=== PATIENT | female | born 1990 | race Caucasian/White ===

== ENCOUNTER 2016-09-17 11:01 | Emergency (ER) | payer OTHER ==
[~2016-09-17 11:01] MED LIST: IBUP-1114 PO; MACR100C3 PO
[2016-09-17 11:53] LABS: CONTROL LINE UCG INT CTR LINE PRESENT
--- NOTE | 2016-09-17 12:22 | EDDOCDS ---
Nurse's Notes [facility] Name: Cricket Cat Age: 26 yrs Sex: Female : 1990 Arrival Date: 09/17/2016 Time: 11:01 Bed TR8 Private MD: NO PRIMARY PHYSICIAN, . Diagnosis: Cystitis Presentation: 09/17 11:09 Presenting complaint: Patient states: urinary frequency x1 month. Denies painful po urination. Adult Sepsis Screening: The patient does not have new or worsening altered mentation. Patient's respiratory rate is less than 22. Systolic blood pressure is greater than 100. Patient has a qSOFA score of 0- Negative Sepsis Screen. Suicide/Homicide risk assessment- the patient denies having any suicidal and/or homicidal ideations and does not present with any other emotional, behavioral or mental health complaints. Status: Patient is not a administrative services assistant or dependent. Transition of care: patient was not received from another setting of care. 11:09 Acuity: BINU Level 4 po 11:09 Method Of Arrival: Walkin/Carried/Asstd po Triage Assessment: 11:11 General: Appears in no apparent distress, Behavior is appropriate for age, cooperative. po Pain: Denies pain. HIV screening NA for this visit Offered previously. Neurological: Level of Consciousness is awake, alert, Oriented to person, place, time. Respiratory: Airway is patent Respiratory effort is even, unlabored. : Reports urinary frequency since 1 month. Derm: Skin is pink, warm & dry. 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 Iron CR Oral 250 mg daily 2. albuterol sulfate 90 mcg/actuation Inhl aepb 2 puffs every 4 hours 3. Depo-Provera Unknown IM every 3 mo - PMHx: Anemia; Asthma; - PSHx: Cesearean Section; - Social history: Smoking status: Patient states former smoker of tobacco. No barriers to communication noted, The patient speaks fluent Thai. - Family history: Not pertinent. - : The pt / caregiver states he / she is not on anticoagulants. Home medication list is obtained from the patient. - Exposure Risk Screening:: None identified. Screenin:19 Screening information is obtained from the patient. Fall risk: No risks identified. ms18 Assistance ADL's: requires no assistance with activities of daily living. Abuse/DV Screen: The patient / caregiver reports he/she is: not in a situation that causes fear, pain or injury. Nutritional screening: No deficits noted. Advance Directives: There is no living will. home support is adequate. Assessment: 12:19 General: Appears in no apparent distress, comfortable, Behavior is appropriate for age, ms18 cooperative. Pain: Location: pelvis. Neurological: Level of Consciousness is awake, alert, obeys commands, Oriented to person, place, time. Respiratory: No deficits noted. : Reports burning with urination. Derm: Skin is pink, warm & dry. Vital Signs: 11:03 BP 123 / 87; Pulse 120; Resp 18; Temp 97.7(O); Pulse Ox 98% on R/A; Weight 54.43 kg sar1 (R); Height 5 ft. 3 in. (160.02 cm) (R); Pain 0/10; 12:19 BP 120 / 84; Pulse 97; Resp 18; Pulse Ox 98% ; ms18 11:03 Body Mass Index 21.26 (54.43 kg, 160.02 cm) [facility] Vitals: 11:03 Log In Time: September 17, 2016 at 11:03. [facility] ED Course: 11:02 Patient visited by Bernadine Malone, [employer] Account Assistant. sar1 11:02 Patient moved to Waiting sar1 11:03 NO PRIMARY PHYSICIAN, . is Private Physician. sar1 11:06 Patient moved to Pre RCE sar1 11:10 Triage Initiated po 11:11 Arm band placed on right wrist. Patient placed in waiting room. po 11:38 Patient moved to Triage 3 rn1 11:46 Patient visited by Jaquelin Monroe RN. ms18 11:46 GC & Chlamydia Amplification Sent. ms18 11:46 UCG- In Lab Sent. ms18 11:46 Urine Culture Sent. ms18 11:46 UA Sent. ms18 11:49 [facility] cc10 11:49 Felicia Owusu MD is Attending Physician. cc10 11:49 Patient visited by Jose Evans PA-C. cc10 11:49 Patient visited by Jose Evans PA-C. cc10 12:11 Yonny Gabriel MD is Referral Physician. cc10 12:19 Patient visited by Jaquelin Monroe RN. ms18 12:19 Patient moved to 8 ms18 12:19 The patient / caregiver is instructed regarding the plan of care and ED course. ms18 Accompanied by Significant Other, Patient has correct armband on for positive identification. Property sent home with patient. :Personal belongings accompany Pt. 12:19 No IV's were initiated during this patient's visit. No procedures done that require ms18 assistance. Order Results: Lab Order: UA; SPEC'M 09/17/16 11:44 Test: APPEARANCE, URINE; Value: CLEAR; Range: CLEAR; Status: F Test: COLOR, URINE; Value: YELLOW; Range: YELLOW; Status: F Test: PH,URINE; Value: 6.0; Range: 5.0-9.0; Units: UNITS; Status: F Test: SPECIFIC GRAVITY URINE AUTO; Value: 1.017; Range: 1.002-1.035; Status: F Test: PROTEIN, URINE AUTO; Value: NEGATIVE; Range: NEGATIVE; Units: mg/dL; Status: F Test: GLUCOSE, URINE (UA) AUTO; Value: NEGATIVE; Range: NEGATIVE; Units: mg/dL; Status: F Test: KETONE, URINE AUTO; Value: NEGATIVE; Range: NEGATIVE; Units: mg/dL; Status: F Test: UROBILINOGEN, URINE AUTO; Value: 0.2; Range: 0.0-2.0; Units: mg/dL; Status: F Test: BILIRUBIN, URINE AUTO; Value: NEGATIVE; Range: NEGATIVE; Status: F Test: NITRITE, URINE AUTO; Value: NEGATIVE; Range: NEGATIVE; Status: F Test: LEUKOCYTE ESTERASE, URINE AUTO; Value: TRACE; Range: NEGATIVE; Abnormal: Above high normal; Status: F Test: BLOOD, URINE BLOOD; Value: 1+; Range: NEGATIVE; Abnormal: Above high normal; Status: F Test: SPERM, URINE AUTO; Range: NONE; Status: I Test: WBC, URINE AUTO; Value: 5; Range: 0-3; Abnormal: Above high normal; Units: /HPF; Status: F Test: RBC, URINE AUTO; Value: 2; Range: 0-3; Units: /HPF; Status: F Test: BACTERIA, URINE AUTO; Value: NEGATIVE; Range: NEGATIVE; Status: F Test: SQUAMOUS EPITHELIAL CELL UR AU; Value: 2; Range: 0-6; Units: /HPF; Status: F Test: MUCUS, URINE; Value: SMALL; Range: NEGATIVE; Status: F Test: HYALINE CAST, URINE AUTO; Value: 0; Range: 0-1; Units: /LPF; Status: F Lab Order: UCG- In Lab; OLI'M 09/17/16 11:44 Test: URINE PREG TEST; Value: NEGATIVE; Range: NEGATIVE; Status: F Outcome: 12:11 Discharge ordered by Provider. cc10 12:19 Discharge Assessment: Patient awake, alert and oriented x 3. No cognitive and/or ms18 functional deficits noted. Patient verbalized understanding of disposition instructions. patient administered narcotics - no. The following High Risk Discharge criteria are identified: None. Discharged to home ambulatory, with significant other. Condition: good Condition: stable Condition: improved. Discharge instructions given to patient, Instructed on discharge instructions, follow up and referral plans. medication usage, Demonstrated understanding of instructions, medications, Pt was receptive of discharge instructions/ teaching. Prescriptions given X 2. No special radiology studies were completed. 12:21 Patient left the ED. ms18 Signatures: Ezra Chambers,RN RN Jose Sterling, PA-C PA-C cc10 Jaquelin Monroe RN RN ms18 Bernadine Malone, [employer] Account Assistant Unit sar1 Martin Nobles rn1 MTDD
--- NOTE | 2016-09-17 12:22 | EDDOCDS ---
Physician Documentation [facility] Name: Cricket Cat Age: 26 yrs Sex: Female : 1990 Arrival Date: 09/17/2016 Time: 11:01 Bed TR8 Private MD: NO PRIMARY PHYSICIAN, . Disposition: 09/17/16 12:11 Discharged to Home/Self Care. Impression: Cystitis. - Condition is Stable. - Discharge Instructions: Urinary Tract Infection. - Prescriptions for Pyridium 200 mg Oral Tablet - take 1 tablet by ORAL route every 8 hours for 3 days; 9 tablet. Macrobid 100 mg Oral Capsule - take 100 milligrams by ORAL route every 12 hours for 5 days; 10 capsule. - Medication Reconciliation, Local Pharmacy Hours form. - Follow up: Emergency Department; When: As needed; Reason: Worsening of conditions. Follow up: Yonny Gabriel MD; When: Call to arrange an appointment; Reason: Wound/Symptom Recheck, Recheck today's complaints, Continuance of care. - Problem is an ongoing problem. - Symptoms are unchanged. - Notes: Please follow up with Dr. Gabriel if no improvement in your symptoms. Historical: - Allergies: PENICILLINS (Swelling); - Home Meds: 1. Iron CR Oral 250 mg daily 2. albuterol sulfate 90 mcg/actuation Inhl aepb 2 puffs every 4 hours 3. Depo-Provera Unknown IM every 3 mo - PMHx: Anemia; Asthma; - PSHx: Cesearean Section; - Social history: Smoking status: Patient states former smoker of tobacco. No barriers to communication noted, The patient speaks fluent Japanese. - Family history: Not pertinent. - : The pt / caregiver states he / she is not on anticoagulants. Home medication list is obtained from the patient. - Exposure Risk Screening:: None identified. 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 3 in. (160.02 cm) (R); Pain 0/10; 12:19 BP 120 / 84; Pulse 97; Resp 18; Pulse Ox 98% ; ms18 11:03 Body Mass Index 21.26 (54.43 kg, 160.02 cm) sar1 MDM: 11:17 Urine Culture Ordered. EDMS 11:17 UA Ordered. EDMS 11:17 UCG- In Lab Ordered. EDMS 11:25 GC & Chlamydia Amplification Ordered. EDMS 12:02 UCG- In Lab Reviewed. cc10 12:08 UA Reviewed. cc10 12:08 UCG- In Lab Reviewed. cc10 Signatures: Dispatcher [employer] EDMS Ezra Chambers,RN RN Jose Sterling, PA-C PA-C cc10 Jaquelin Monroe,RN RN ms18 MTDD
--- NOTE | 2016-09-19 13:22 | EDDOCDS ---
Physician Documentation [facility] Name: Cricket Cat Age: 26 yrs Sex: Female : 1990 Arrival Date: 09/17/2016 Time: 11:01 Bed TR8 Private MD: NO PRIMARY PHYSICIAN, . Disposition: 09/17/16 12:11 Discharged to Home/Self Care. Impression: Cystitis. - Condition is Stable. - Discharge Instructions: Urinary Tract Infection. - Prescriptions for Pyridium 200 mg Oral Tablet - take 1 tablet by ORAL route every 8 hours for 3 days; 9 tablet. Macrobid 100 mg Oral Capsule - take 100 milligrams by ORAL route every 12 hours for 5 days; 10 capsule. - Medication Reconciliation, Local Pharmacy Hours form. - Follow up: Emergency Department; When: As needed; Reason: Worsening of conditions. Follow up: Yonny Gabriel MD; When: Call to arrange an appointment; Reason: Wound/Symptom Recheck, Recheck today's complaints, Continuance of care. - Problem is an ongoing problem. - Symptoms are unchanged. - Notes: Please follow up with Dr. Gabriel if no improvement in your symptoms. Historical: - Allergies: PENICILLINS (Swelling); - Home Meds: 1. Iron CR Oral 250 mg daily 2. albuterol sulfate 90 mcg/actuation Inhl aepb 2 puffs every 4 hours 3. Depo-Provera Unknown IM every 3 mo - PMHx: Anemia; Asthma; - PSHx: Cesearean Section; - Social history: Smoking status: Patient states former smoker of tobacco. No barriers to communication noted, The patient speaks fluent Yoruba. - Family history: Not pertinent. - : The pt / caregiver states he / she is not on anticoagulants. Home medication list is obtained from the patient. - Exposure Risk Screening:: None identified. 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 3 in. (160.02 cm) (R); Pain 0/10; 12:19 BP 120 / 84; Pulse 97; Resp 18; Pulse Ox 98% ; ms18 11:03 Body Mass Index 21.26 (54.43 kg, 160.02 cm) sar1 MDM: 11:17 Urine Culture Ordered. EDMS 11:17 UA Ordered. EDMS 11:17 UCG- In Lab Ordered. EDMS 11:25 GC & Chlamydia Amplification Ordered. EDMS 12:02 UCG- In Lab Reviewed. cc10 12:08 UA Reviewed. cc10 12:08 UCG- In Lab Reviewed. cc10 12:25 [place] [place] Agreement was scanned into [employer] and attached to record. 5 12:25 Financial registration complete. jp5 17:20 T-Sheet-- Draft Copy was scanned into [employer] and attached to record. klr Signatures: Dispatcher [employer] Ezra Lowry,Jose Vallejo RN, PA-C PA-C cc10 Jaquelin Monroe RN RN ms18 Marcelina Sandoval jp5 Charissa Waldron klarti The chart was reviewed and I authenticate all verbal orders and agree with the evaluation and treatment provided.Attachments: 12:25 [facility] Payment Agreement 5 17:20 T-Sheet-- Draft Copy klr Chart Complete MTDD
--- NOTE | 2016-09-19 13:23 | EDDOCDS ---
Nurse's Notes [facility] Name: Cricket Cat Age: 26 yrs Sex: Female : 1990 Arrival Date: 09/17/2016 Time: 11:01 Bed TR8 Private MD: NO PRIMARY PHYSICIAN, . Diagnosis: Cystitis Presentation: 09/17 11:09 Presenting complaint: Patient states: urinary frequency x1 month. Denies painful po urination. Adult Sepsis Screening: The patient does not have new or worsening altered mentation. Patient's respiratory rate is less than 22. Systolic blood pressure is greater than 100. Patient has a qSOFA score of 0- Negative Sepsis Screen. Suicide/Homicide risk assessment- the patient denies having any suicidal and/or homicidal ideations and does not present with any other emotional, behavioral or mental health complaints. Status: Patient is not a room service associate or dependent. Transition of care: patient was not received from another setting of care. 11:09 Acuity: BINU Level 4 po 11:09 Method Of Arrival: Walkin/Carried/Asstd po Triage Assessment: 11:11 General: Appears in no apparent distress, Behavior is appropriate for age, cooperative. po Pain: Denies pain. HIV screening NA for this visit Offered previously. Neurological: Level of Consciousness is awake, alert, Oriented to person, place, time. Respiratory: Airway is patent Respiratory effort is even, unlabored. : Reports urinary frequency since 1 month. Derm: Skin is pink, warm & dry. 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 Iron CR Oral 250 mg daily 2. albuterol sulfate 90 mcg/actuation Inhl aepb 2 puffs every 4 hours 3. Depo-Provera Unknown IM every 3 mo - PMHx: Anemia; Asthma; - PSHx: Cesearean Section; - Social history: Smoking status: Patient states former smoker of tobacco. No barriers to communication noted, The patient speaks fluent Kyrgyz. - Family history: Not pertinent. - : The pt / caregiver states he / she is not on anticoagulants. Home medication list is obtained from the patient. - Exposure Risk Screening:: None identified. Screenin:19 Screening information is obtained from the patient. Fall risk: No risks identified. ms18 Assistance ADL's: requires no assistance with activities of daily living. Abuse/DV Screen: The patient / caregiver reports he/she is: not in a situation that causes fear, pain or injury. Nutritional screening: No deficits noted. Advance Directives: There is no living will. home support is adequate. Assessment: 12:19 General: Appears in no apparent distress, comfortable, Behavior is appropriate for age, ms18 cooperative. Pain: Location: pelvis. Neurological: Level of Consciousness is awake, alert, obeys commands, Oriented to person, place, time. Respiratory: No deficits noted. : Reports burning with urination. Derm: Skin is pink, warm & dry. Vital Signs: 11:03 BP 123 / 87; Pulse 120; Resp 18; Temp 97.7(O); Pulse Ox 98% on R/A; Weight 54.43 kg sar1 (R); Height 5 ft. 3 in. (160.02 cm) (R); Pain 0/10; 12:19 BP 120 / 84; Pulse 97; Resp 18; Pulse Ox 98% ; ms18 11:03 Body Mass Index 21.26 (54.43 kg, 160.02 cm) [facility] Vitals: 11:03 Log In Time: September 17, 2016 at 11:03. [facility] ED Course: 11:02 Patient visited by Bernadine Malone, Refrigeration Supervisor. sar1 11:02 Patient moved to Waiting sar1 11:03 NO PRIMARY PHYSICIAN, . is Private Physician. sar1 11:06 Patient moved to Pre RCE sar1 11:10 Triage Initiated po 11:11 Arm band placed on right wrist. Patient placed in waiting room. po 11:38 Patient moved to Triage 3 rn1 11:46 Patient visited by Jaquelin Monroe RN. ms18 11:46 GC & Chlamydia Amplification Sent. ms18 11:46 UCG- In Lab Sent. ms18 11:46 Urine Culture Sent. ms18 11:46 UA Sent. ms18 11:49 [facility] cc10 11:49 Felicia Owusu MD is Attending Physician. cc10 11:49 Patient visited by Jose Evans PA-C. cc10 11:49 Patient visited by Jose Evans PA-C. cc10 12:11 Yonny Gabriel MD is Referral Physician. cc10 12:19 Patient visited by Jaquelin Monroe RN. ms18 12:19 Patient moved to TR8 ms18 12:19 The patient / caregiver is instructed regarding the plan of care and ED course. ms18 Accompanied by Significant Other, Patient has correct armband on for positive identification. Property sent home with patient. :Personal belongings accompany Pt. 12:19 No IV's were initiated during this patient's visit. No procedures done that require ms18 assistance. 12:25 [place] [place] was scanned into [employer] and attached to record. jp5 17:20 T-Sheet-- Draft Copy was scanned into [employer] and attached to record. klr Order Results: Lab Order: UA; SPEC'M 09/17/16 11:44 Test: APPEARANCE, URINE; Value: CLEAR; Range: CLEAR; Status: F Test: COLOR, URINE; Value: YELLOW; Range: YELLOW; Status: F Test: PH,URINE; Value: 6.0; Range: 5.0-9.0; Units: UNITS; Status: F Test: SPECIFIC GRAVITY URINE AUTO; Value: 1.017; Range: 1.002-1.035; Status: F Test: PROTEIN, URINE AUTO; Value: NEGATIVE; Range: NEGATIVE; Units: mg/dL; Status: F Test: GLUCOSE, URINE (UA) AUTO; Value: NEGATIVE; Range: NEGATIVE; Units: mg/dL; Status: F Test: KETONE, URINE AUTO; Value: NEGATIVE; Range: NEGATIVE; Units: mg/dL; Status: F Test: UROBILINOGEN, URINE AUTO; Value: 0.2; Range: 0.0-2.0; Units: mg/dL; Status: F Test: BILIRUBIN, URINE AUTO; Value: NEGATIVE; Range: NEGATIVE; Status: F Test: NITRITE, URINE AUTO; Value: NEGATIVE; Range: NEGATIVE; Status: F Test: LEUKOCYTE ESTERASE, URINE AUTO; Value: TRACE; Range: NEGATIVE; Abnormal: Above high normal; Status: F Test: BLOOD, URINE BLOOD; Value: 1+; Range: NEGATIVE; Abnormal: Above high normal; Status: F Test: SPERM, URINE AUTO; Range: NONE; Status: I Test: WBC, URINE AUTO; Value: 5; Range: 0-3; Abnormal: Above high normal; Units: /HPF; Status: F Test: RBC, URINE AUTO; Value: 2; Range: 0-3; Units: /HPF; Status: F Test: BACTERIA, URINE AUTO; Value: NEGATIVE; Range: NEGATIVE; Status: F Test: SQUAMOUS EPITHELIAL CELL UR AU; Value: 2; Range: 0-6; Units: /HPF; Status: F Test: MUCUS, URINE; Value: SMALL; Range: NEGATIVE; Status: F Test: HYALINE CAST, URINE AUTO; Value: 0; Range: 0-1; Units: /LPF; Status: F Lab Order: Urine Culture; SPEC'M 09/17/16 11:44 Test: URINE CULTURE; Value: URINE CULTURE RESULT NO GROWTH; Status: F Lab Order: UCG- In Lab; SPEC'M 09/17/16 11:44 Test: URINE PREG TEST; Value: NEGATIVE; Range: NEGATIVE; Status: F Lab Order: GC & Chlamydia Amplification; SPEC'M 09/17/16 11:44 Test: CHLAMYDIA DNA AMPLIFICATION; Value: NEGATIVE; Range: NEGATIVE; Status: F Test: GC DNA AMPLIFICATION; Value: NEGATIVE; Range: NEGATIVE; Status: F Outcome: 12:11 Discharge ordered by Provider. cc10 12:19 Discharge Assessment: Patient awake, alert and oriented x 3. No cognitive and/or ms18 functional deficits noted. Patient verbalized understanding of disposition instructions. patient administered narcotics - no. The following High Risk Discharge criteria are identified: None. Discharged to home ambulatory, with significant other. Condition: good Condition: stable Condition: improved. Discharge instructions given to patient, Instructed on discharge instructions, follow up and referral plans. medication usage, Demonstrated understanding of instructions, medications, Pt was receptive of discharge instructions/ teaching. Prescriptions given X 2. No special radiology studies were completed. 12:21 Patient left the ED. ms18 Signatures: Ezra Chambers,RN RN Jose Sterling, PA-C PA-C cc10 Jaquelin Monroe RN RN ms18 Bernadine Malone, Refrigeration Supervisor Unit sar1 Martin Nobles rn1 Marcelina Sandoval jp5 Charissa Waldron Chart Complete MTDD
--- NOTE | 2016-09-19 13:23 | EDDOCDS ---
Physician Documentation [facility] Name: Cricket Cat Age: 26 yrs Sex: Female : 1990 Arrival Date: 09/17/2016 Time: 11:01 Bed TR8 Private MD: NO PRIMARY PHYSICIAN, . Disposition: 09/17/16 12:11 Discharged to Home/Self Care. Impression: Cystitis. - Condition is Stable. - Discharge Instructions: Urinary Tract Infection. - Prescriptions for Pyridium 200 mg Oral Tablet - take 1 tablet by ORAL route every 8 hours for 3 days; 9 tablet. Macrobid 100 mg Oral Capsule - take 100 milligrams by ORAL route every 12 hours for 5 days; 10 capsule. - Medication Reconciliation, Local Pharmacy Hours form. - Follow up: Emergency Department; When: As needed; Reason: Worsening of conditions. Follow up: Yonny Gabriel MD; When: Call to arrange an appointment; Reason: Wound/Symptom Recheck, Recheck today's complaints, Continuance of care. - Problem is an ongoing problem. - Symptoms are unchanged. - Notes: Please follow up with Dr. Gabriel if no improvement in your symptoms. Historical: - Allergies: PENICILLINS (Swelling); - Home Meds: 1. Iron CR Oral 250 mg daily 2. albuterol sulfate 90 mcg/actuation Inhl aepb 2 puffs every 4 hours 3. Depo-Provera Unknown IM every 3 mo - PMHx: Anemia; Asthma; - PSHx: Cesearean Section; - Social history: Smoking status: Patient states former smoker of tobacco. No barriers to communication noted, The patient speaks fluent Albanian. - Family history: Not pertinent. - : The pt / caregiver states he / she is not on anticoagulants. Home medication list is obtained from the patient. - Exposure Risk Screening:: None identified. 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 3 in. (160.02 cm) (R); Pain 0/10; 12:19 BP 120 / 84; Pulse 97; Resp 18; Pulse Ox 98% ; ms18 11:03 Body Mass Index 21.26 (54.43 kg, 160.02 cm) sar1 MDM: 11:17 Urine Culture Ordered. EDMS 11:17 UA Ordered. EDMS 11:17 UCG- In Lab Ordered. EDMS 11:25 GC & Chlamydia Amplification Ordered. EDMS 12:02 UCG- In Lab Reviewed. cc10 12:08 UA Reviewed. cc10 12:08 UCG- In Lab Reviewed. cc10 12:25 [facility] [place] Agreement was scanned into [employer] and attached to record. 5 12:25 Financial registration complete. jp5 17:20 T-Sheet-- Draft Copy was scanned into [employer] and attached to record. klr Signatures: Dispatcher [employer] Ezra Lowry,Jose Vallejo RN, PA-C PA-C cc10 Jaquelin Monroe RN RN ms18 Marcelina Sandoval jp5 Charissa Waldron klarti The chart was reviewed and I authenticate all verbal orders and agree with the evaluation and treatment provided.Attachments: 12:25 [facility] Payment Agreement 5 17:20 T-Sheet-- Draft Copy klr Chart Complete MTDD
== END 2016-09-17 12:21 | disposition home or self-care (01) ==
LOC: M ED 11:01
DX: N30.90 Cystitis, unspecified without hematuria (principal); D64.9 Anemia, unspecified; J45.909 Unspecified asthma, uncomplicated; Z87.891 Personal history of nicotine dependence; Z79.3 Long term (current) use of hormonal contraceptives; Z79.899 Other long term (current) drug therapy; Z88.0 Allergy status to penicillin

== ENCOUNTER 2017-05-03 07:38 | Emergency (ER) | payer OTHER ==
[~2017-05-03] VITALS: Ht 160 cm; Wt 54.5 kg
[~2017-05-03 07:38] MED LIST changes: -MACR100C3 PO; +MACR100C43 PO
[2017-05-03 07:58] VITALS: BP 120/73
[2017-05-03] MEDS ORDERED: REGL10TA6 PO (08:29)
[2017-05-03] MEDS ORDERED: METOCLOPRAMIDE 10 MG TAB PO ONE (08:30)
== END 2017-05-03 08:38 | disposition home or self-care (01) ==
LOC: M ED 07:38
DX: Z32.01 Encounter for pregnancy test, result positive (principal); R11.10 Vomiting, unspecified; O99.511 Diseases of the respiratory system complicating pregnancy, first trimester; J45.909 Unspecified asthma, uncomplicated; D64.9 Anemia, unspecified; Z88.0 Allergy status to penicillin; Z3A.00 Weeks of gestation of pregnancy not specified

== ENCOUNTER → 2017-05-16 | Outpatient (CLI) | payer OTHER ==
[~2017-05-16] MED LIST changes: +REGL10TA6 PO
[2017-05-16 14:06] LABS: ADD MANUAL DIFFER YES; MEAN CORPUSCULAR HEMOGLOBIN 24.3 pg (27.0-33.0); MEAN CORPUSCULAR HGB CONC 30.8 g/dl (32.0-36.5); PLATELET COUNT, AUTOMATED 350 k/mm3 (150-450); RED CELL DISTRIBUTION WIDTH 14.7 % (11.5-14.5); WHITE BLOOD COUNT 5.9 K/mm3 (4.0-10.0)
[2017-05-16 14:26] LABS: BANDS 8 % (< 11); BASOPHILS 1 % (0-4); EOSINOPHILS 3 % (0-5)
[2017-05-16 14:27] LABS: ANISOCYTOSIS 1+; OVALOCYTES 1+
[2017-05-16 14:36] LABS: HBsAg Prenatal NEGATIVE (NEGATIVE)
== END ==
LOC: M SMT 09:18
PROVIDERS: ATTEND Obstetrics & Gynecology
DX: Z34.81 Encounter for supervision of other normal pregnancy, first trimester (principal)

== ENCOUNTER 2017-08-01 23:21 | Emergency (ER) | payer OTHER ==
[~2017-08-01] VITALS: Ht 160 cm; Wt 50.0 kg
[2017-08-01] MEDS ORDERED: MIDOTAB11 PO (23:46)
[2017-08-02] MEDS ORDERED: KETOROLAC 30 MG/ML VIAL (J1885) IV ONE (00:30)
[2017-08-02] MEDS ORDERED: NS 1,000 ML IV ONE (00:30)
[2017-08-02] MEDS ORDERED: KETOROLAC 30 MG/ML VIAL (J1885) As Ordered ONE (00:39)
[2017-08-02 00:55] LABS: BASO # 0.1 10^3/uL (0.0-0.2); BASO % 0.4 % (0.0-1.0); EOS # 0.3 10^3/uL (0.0-0.50); EOS % 2.7 % (0.0-3.0); IMMATURE GRANULOCYTE % 0.3 % (0-0); LYMPH # 1.8 10^3/uL (1.5-6.5); MEAN CORPUSCULAR HEMOGLOBIN 24.4 pg (27.0-33.0); MEAN CORPUSCULAR HGB CONC 30.9 g/dl (32.0-36.5); MEAN CORPUSCULAR VOLUME 79.1 fl (80.0-96.0); MONO # 0.6 10^3/uL (0.0-0.8); MONO % 4.9 % (0.0-5.0); NEUTROPHILS # 9.2 10^3/uL (1.8-7.7); NEUTROPHILS % 76.7 % (36.0-66.0); PLATELET COUNT, AUTOMATED 357 10^3/uL (150-450); RED CELL DISTRIBUTION WIDTH 17.1 % (11.5-14.5); WHITE BLOOD COUNT 11.9 10^3/uL (4.0-10.0)
[2017-08-02 01:06] LABS: CONTROL LINE HCG INT CTR LINE PRESENT
[2017-08-02 01:13] LABS: ALBUMIN 3.4 GM/DL (3.2-5.2); ALBUMIN/GLOBULIN RATIO 0.85 (1.00-1.93); ALKALINE PHOSPHATASE 89 U/L (45-117); ALT/SGPT 21 U/L (12-78); AMYLASE 86 U/L (25-115); ANION GAP 7 MEQ/L (8-16); AST/SGOT 12 U/L (7-37); BILIRUBIN,DIRECT < 0.1 MG/DL (0.0-0.2); BILIRUBIN,TOTAL 0.2 MG/DL (0.2-1.0); BLOOD UREA NITROGEN 14 MG/DL (7-18); CARBON DIOXIDE LEVEL 27 MEQ/L (21-32); CHLORIDE LEVEL 105 MEQ/L (98-107); CREATININE FOR GFR 0.67 MG/DL (0.55-1.02); GLOMERULAR FILTRATION RATE > 60.0 (>60); GLUCOSE, FASTING 113 MG/DL (70-105); POTASSIUM SERUM 3.9 MEQ/L (3.5-5.1); SODIUM LEVEL 139 MEQ/L (136-145); TOTAL PROTEIN 7.4 GM/DL (6.4-8.2)
[2017-08-02 02:28] LABS: HCG, SERUM QUANTITATIVE 106 MIU/ML
--- NOTE | 2017-08-02 03:10 | REPUSA ---
CLINICAL HISTORY: Pain, bleeding. TECHNIQUE: Transabdominal of the pelvis was performed. FINDINGS: The uterus is normal in size measuring 8.9x1.8x5.8 cm. The crown-rump length measures 30.2 images. This corresponds to an estimated gestational age of 9 wee ks and 6 days. Absent cardiac activity. Absent motion. Normal right ovary. Normal left ovary. No evidence of ovarian torsion. Both ovaries are identified without adnexal mass or pelvic fluid collection. IMPRESSION: demise.
[2017-08-02] MEDS ORDERED: MORPHINE 4 MG/ML 1ML SYRINGE IV ONE (03:15)
[2017-08-02] MEDS ORDERED: NORCO 5/325MG TABLET (BULK FOR ED) PO ONE (03:30)
[2017-08-02 03:49] VITALS: BP 120/63
== END 2017-08-02 03:52 | disposition home or self-care (01) ==
LOC: EDBD 23:21 → M ED 23:21
DX: O02.1 Missed abortion (principal); O99.511 Diseases of the respiratory system complicating pregnancy, first trimester; J45.909 Unspecified asthma, uncomplicated; O99.011 Anemia complicating pregnancy, first trimester; Z3A.09 9 weeks gestation of pregnancy; Z88.0 Allergy status to penicillin; Z91.018 Allergy to other foods
CPT/HCPCS: 76801; 80048; 80076; 81001; 82150; 83690; 84702; 84703; 85025; 87088; 87186; 93976; 96361; 96374; 96375; 99284; J1885

== ENCOUNTER 2017-08-31 13:53 | Emergency (ER) | payer OTHER ==
[~2017-08-31] VITALS: Ht 160 cm; Wt 50.0 kg
[~2017-08-31 13:53] MED LIST changes: +MIDOTAB11 PO
--- NOTE | 2017-08-31 14:38 | REP ---
Right ankle four views: There is soft tissue edema laterally. There is a calcification distal to the tip of the fibula, likely an accessory ossicle although and a bulging is not entirely discounted. Mineralization is normal. The mortise is symmetric. Talar dome is unremarkable. Impression: Soft tissue edema laterally. Avulsion versus accessory ossicle at the fibular tip. Signed by Eleuterio Walters MD 08/31/2017 02:29 P
[2017-08-31] MEDS ORDERED: IBUP-1022 PO (14:57)
[2017-08-31 15:14] VITALS: BP 122/72
== END 2017-08-31 15:34 | disposition home or self-care (01) ==
LOC: M ED 13:53
DX: S93.401A Sprain of unspecified ligament of right ankle, initial encounter (principal); X50.9XXA Other and unspecified overexertion or strenuous movements or postures, initial encounter; Y92.018 Other place in single-family (private) house as the place of occurrence of the external cause; Y93.89 Activity, other specified; Y99.8 Other external cause status; J45.909 Unspecified asthma, uncomplicated

== ENCOUNTER 2017-09-20 09:54 | Emergency (ER) | payer OTHER ==
[2017-09-20] MEDS: METOCLOPRAMIDE INJ 10MG/2ML VIAL (J2765) IV (11:00)
[2017-09-20] MEDS: KETOROLAC 30 MG/ML VIAL (J1885) IV (11:00)
[2017-09-20] MEDS: GASTROGRAFIN SOLUTION 30ML PO (11:15)
[2017-09-20 11:27] LABS: BASO % 0.7 % (0.0-1.0); EOS # 0.2 10^3/uL (0.0-0.50); EOS % 2.9 % (0.0-3.0); HEMATOCRIT 35.4 % (36.0-47.0); HEMOGLOBIN 10.7 g/dl (12.0-16.0); IMMATURE GRANULOCYTE % 0.2 % (0-0); LYMPH # 1.9 10^3/uL (1.5-6.5); LYMPH % 31.6 % (24.0-44.0); MEAN CORPUSCULAR HEMOGLOBIN 24.4 pg (27.0-33.0); MEAN CORPUSCULAR HGB CONC 30.2 g/dl (32.0-36.5); MEAN CORPUSCULAR VOLUME 80.6 fl (80.0-96.0); MONO # 0.4 10^3/uL (0.0-0.8); MONO % 7.3 % (0.0-5.0); NEUTROPHILS # 3.4 10^3/uL (1.8-7.7); NEUTROPHILS % 57.3 % (36.0-66.0); PLATELET COUNT, AUTOMATED 329 10^3/uL (150-450); RED BLOOD COUNT 4.39 10^6/uL (4.00-5.40); RED CELL DISTRIBUTION WIDTH 16.4 % (11.5-14.5); WHITE BLOOD COUNT 5.9 10^3/uL (4.0-10.0)
[2017-09-20] MEDS: GASTROGRAFIN SOLUTION 30ML (Q9963) PO (11:28)
[2017-09-20 11:34] LABS: CONTROL LINE HCG INT CTR LINE PRESENT; HCG, SERUM QUALITATIVE NEGATIVE (NEGATIVE)
[2017-09-20 11:35] LABS: APPEARANCE, URINE CLEAR (CLEAR); BACTERIA, URINE AUTO 1+ (NEGATIVE); BILIRUBIN, URINE AUTO NEGATIVE (NEGATIVE); BLOOD, URINE BLOOD NEGATIVE (NEGATIVE); COLOR, URINE YELLOW (YELLOW); GLUCOSE, URINE (UA) AUTO NEGATIVE (NEGATIVE); KETONE, URINE AUTO NEGATIVE (NEGATIVE); LEUKOCYTE ESTERASE, URINE AUTO TRACE (NEGATIVE); MUCUS, URINE SMALL (NEGATIVE); NITRITE, URINE AUTO NEGATIVE (NEGATIVE); PROTEIN, URINE AUTO NEGATIVE (NEGATIVE); RBC, URINE AUTO 1 /HPF (0-3); SPECIFIC GRAVITY URINE AUTO 1.023 (1.002-1.035); SQUAMOUS EPITHELIAL CELL UR AU 1 /HPF (0-6); UROBILINOGEN, URINE AUTO 0.2 mg/dL (0.0-2.0); WBC, URINE AUTO 1 /HPF (0-3)
[2017-09-20 11:47] LABS: ALBUMIN 3.5 GM/DL (3.2-5.2); ALBUMIN/GLOBULIN RATIO 0.85 (1.00-1.93); ALKALINE PHOSPHATASE 63 U/L (45-117); ALT/SGPT 16 U/L (12-78); AMYLASE 96 U/L (25-115); ANION GAP 5 MEQ/L (8-16); AST/SGOT 12 U/L (7-37); BILIRUBIN,TOTAL 0.3 MG/DL (0.2-1.0); BLOOD UREA NITROGEN 11 MG/DL (7-18); CALCIUM LEVEL 8.4 MG/DL (8.5-10.1); CARBON DIOXIDE LEVEL 26 MEQ/L (21-32); CHLORIDE LEVEL 108 MEQ/L (98-107); CREATININE FOR GFR 0.62 MG/DL (0.55-1.02); GLOMERULAR FILTRATION RATE > 60.0 (>60); GLUCOSE, FASTING 79 MG/DL (70-105); LIPASE 176 U/L (73-393); SODIUM LEVEL 139 MEQ/L (136-145); TOTAL PROTEIN 7.6 GM/DL (6.4-8.2)
[2017-09-20] MEDS ORDERED: ISOVUE-370 76% 100ML VIAL (Q9967) As Ordered (12:42)
[2017-09-20] MEDS: metroNIDAZOLE (FLAGYL) 500 MG TAB PO (13:55)
[2017-09-20] MEDS: CIPROFLOXACIN 500 MG TAB PO (13:55)
== END 2017-09-20 14:02 | disposition home or self-care (01) ==
LOC: M ED 09:54
DX: K52.9 Noninfective gastroenteritis and colitis, unspecified (principal); N83.201 Unspecified ovarian cyst, right side; J45.909 Unspecified asthma, uncomplicated; D64.9 Anemia, unspecified; N32.81 Overactive bladder; Z91.018 Allergy to other foods; Z88.0 Allergy status to penicillin
CPT/HCPCS: Q9963

== ENCOUNTER 2018-01-24 09:09 | Emergency (ER) | payer OTHER ==
[2018-01-24 10:01] LABS: CONTROL LINE UCG INT CTR LINE PRESENT; URINE PREG TEST POSITIVE (NEGATIVE)
[2018-01-24 10:06] LABS: KETONE, URINE AUTO RFX NEGATIVE (NEGATIVE); LEUKOCYTE ESTERASE UR AUTO RFX NEGATIVE (NEGATIVE); MUCUS, URINE RFX SMALL (NEGATIVE); NITRITE, URINE AUTO RFX NEGATIVE (NEGATIVE); RBC, URINE AUTO RFX 0 /HPF (0-3); SQUAM EPITHELIAL CELL UR AURFX 1 /HPF (0-6); WBC, URINE AUTO RFX 1 /HPF (0-3)
[2018-01-24 10:14] LABS: BASO % 0.5 % (0.0-1.0); EOS # 0.2 10^3/uL (0.0-0.50); EOS % 2.6 % (0.0-3.0); HEMATOCRIT 32.3 % (36.0-47.0); HEMOGLOBIN 9.9 g/dl (12.0-15.5); IMMATURE GRANULOCYTE % 0.2 % (0-3.0); LYMPH # 2.2 10^3/uL (1.5-6.5); LYMPH % 35.9 % (24.0-44.0); MEAN CORPUSCULAR HGB CONC 30.7 g/dl (32.0-36.5); MEAN CORPUSCULAR VOLUME 78.2 fl (80.0-96.0); MONO # 0.4 10^3/uL (0.0-0.8); MONO % 5.8 % (0.0-5.0); NEUTROPHILS # 3.4 10^3/uL (1.8-7.7); PLATELET COUNT, AUTOMATED 284 10^3/uL (150-450); RED BLOOD COUNT 4.13 10^6/uL (4.00-5.40); RED CELL DISTRIBUTION WIDTH 16.7 % (11.5-14.5); WHITE BLOOD COUNT 6.2 10^3/uL (4.0-10.0)
[2018-01-24] MEDS: NS 1,000 ML IV (10:28)
[2018-01-24] MEDS: ONDANSETRON 4MG/2ML VIAL (J2405) IV (10:28)
[2018-01-24 11:01] LABS: ANION GAP 6 MEQ/L (8-16); BLOOD UREA NITROGEN 9 MG/DL (7-18); CALCIUM LEVEL 8.8 MG/DL (8.5-10.1); CARBON DIOXIDE LEVEL 26 MEQ/L (21-32); CHLORIDE LEVEL 105 MEQ/L (98-107); CREATININE FOR GFR 0.55 MG/DL (0.55-1.30); GLOMERULAR FILTRATION RATE > 60.0 (>60); GLUCOSE, FASTING 81 MG/DL (70-100); HCG, SERUM QUANTITATIVE 111810 MIU/ML; SODIUM LEVEL 137 MEQ/L (136-145)
== END 2018-01-24 11:37 | disposition home or self-care (01) ==
LOC: M ED 09:09
DX: O99.011 Anemia complicating pregnancy, first trimester (principal); O99.281 Endocrine, nutritional and metabolic diseases complicating pregnancy, first trimester; O99.511 Diseases of the respiratory system complicating pregnancy, first trimester; Z3A.10 10 weeks gestation of pregnancy; Z79.899 Other long term (current) drug therapy; Z91.018 Allergy to other foods; Z88.0 Allergy status to penicillin
CPT/HCPCS: J2405

== ENCOUNTER 2018-02-06 09:31 | Emergency (ER) | payer OTHER ==
[2018-02-06 10:21] LABS: KETONE, URINE AUTO RFX TRACE mg/dL (NEGATIVE); MUCUS, URINE RFX LARGE (NEGATIVE); NITRITE, URINE AUTO RFX NEGATIVE (NEGATIVE); RBC, URINE AUTO RFX 3 /HPF (0-3); SPECIFIC GRAVITY UR AUTO RFX 1.026 (1.002-1.035); SQUAM EPITHELIAL CELL UR AURFX 2 /HPF (0-6); WBC, URINE AUTO RFX 5 /HPF (0-3)
[2018-02-06 10:25] LABS: LEUKOCYTE ESTERASE UR AUTO RFX TRACE (NEGATIVE)
[2018-02-06] MEDS: ACETAMINOPHEN 325 MG TAB PO (13:30)
[2018-02-06] MEDS: NS 1,000 ML IV (13:30)
[2018-02-06 13:43] LABS: BASO % 0.3 % (0.0-1.0); EOS # 0.1 10^3/uL (0.0-0.50); EOS % 1.3 % (0.0-3.0); HEMATOCRIT 33.7 % (36.0-47.0); HEMOGLOBIN 10.5 g/dl (12.0-15.5); IMMATURE GRANULOCYTE % 0.1 % (0-3.0); LYMPH # 1.7 10^3/uL (1.5-6.5); LYMPH % 21.8 % (24.0-44.0); MEAN CORPUSCULAR HEMOGLOBIN 24.6 pg (27.0-33.0); MEAN CORPUSCULAR HGB CONC 31.2 g/dl (32.0-36.5); MEAN CORPUSCULAR VOLUME 79.1 fl (80.0-96.0); MONO # 0.5 10^3/uL (0.0-0.8); MONO % 6.3 % (0.0-5.0); NEUTROPHILS # 5.3 10^3/uL (1.8-7.7); NEUTROPHILS % 70.2 % (36.0-66.0); PLATELET COUNT, AUTOMATED 313 10^3/uL (150-450); RED BLOOD COUNT 4.26 10^6/uL (4.00-5.40); RED CELL DISTRIBUTION WIDTH 18.6 % (11.5-14.5); WHITE BLOOD COUNT 7.6 10^3/uL (4.0-10.0)
[2018-02-06 14:26] LABS: ALBUMIN 3.2 GM/DL (3.2-5.2); ALBUMIN/GLOBULIN RATIO 0.68 (1.00-1.93); ALKALINE PHOSPHATASE 60 U/L (45-117); ALT/SGPT 13 U/L (12-78); ANION GAP 6 MEQ/L (8-16); AST/SGOT 8 U/L (7-37); BILIRUBIN,TOTAL 0.2 MG/DL (0.2-1.0); BLOOD UREA NITROGEN 6 MG/DL (7-18); CALCIUM LEVEL 8.8 MG/DL (8.5-10.1); CARBON DIOXIDE LEVEL 27 MEQ/L (21-32); CHLORIDE LEVEL 105 MEQ/L (98-107); CREATININE FOR GFR 0.61 MG/DL (0.55-1.30); GLOMERULAR FILTRATION RATE > 60.0 (>60); GLUCOSE, FASTING 85 MG/DL (70-100); HCG, SERUM QUANTITATIVE 74077 MIU/ML; LIPASE 55 U/L (73-393); POTASSIUM SERUM 3.5 MEQ/L (3.5-5.1); SODIUM LEVEL 138 MEQ/L (136-145); TOTAL PROTEIN 7.9 GM/DL (6.4-8.2)
== END 2018-02-06 17:33 | disposition home or self-care (01) ==
LOC: M ED 09:31
DX: O26.891 Other specified pregnancy related conditions, first trimester (principal); R10.30 Lower abdominal pain, unspecified; Z3A.12 12 weeks gestation of pregnancy; O34.219 Maternal care for unspecified type scar from previous cesarean delivery; O99.511 Diseases of the respiratory system complicating pregnancy, first trimester; J45.909 Unspecified asthma, uncomplicated; Z91.018 Allergy to other foods; Z88.0 Allergy status to penicillin; Z87.891 Personal history of nicotine dependence
CPT/HCPCS: 76705

== ENCOUNTER → 2018-02-22 | Outpatient (REF) | payer OTHER ==
[2018-02-22 13:03] LABS: HEMATOCRIT 32.2 % (36.0-47.0); HEMOGLOBIN 10.1 g/dl (12.0-15.5); MEAN CORPUSCULAR HGB CONC 31.4 g/dl (32.0-36.5); MEAN CORPUSCULAR VOLUME 79.7 fl (80.0-96.0); PLATELET COUNT, AUTOMATED 291 10^3/uL (150-450); RED BLOOD COUNT 4.04 10^6/uL (4.00-5.40); RED CELL DISTRIBUTION WIDTH 19.7 % (11.5-14.5); WHITE BLOOD COUNT 5.4 10^3/uL (4.0-10.0)
[2018-02-22 13:46] LABS: HCG, SERUM QUANTITATIVE 42870 MIU/ML
[2018-02-22 13:48] LABS: RUBELLA IgG QUALITATIVE IMMUNE (IMMUNE)
[2018-02-22 13:49] LABS: HEPATITIS B SURFACE ANTIGEN NEGATIVE (NEGATIVE)
[2018-02-22 14:17] LABS: HIV 1&2 SCREEN CENTAUR NEGATIVE (NEGATIVE)
[2018-02-22 14:17] LABS: HEPATITIS C VIRUS ABY INDEX < 0.0 INDEX (<0.8)
== END ==
LOC: M LAB REF 12:51
DX: O36.80X0 Pregnancy with inconclusive fetal viability, not applicable or unspecified (principal); Z3A.00 Weeks of gestation of pregnancy not specified

== ENCOUNTER 2018-06-14 21:19 | Outpatient (CLI) | payer SELFPAY, OTHER | END 2018-06-14 22:50 | disposition home or self-care (01) | LOC: M LDO 21:19 | DX: O26.893 Other specified pregnancy related conditions, third trimester (principal); R10.30 Lower abdominal pain, unspecified; O23.40 Unspecified infection of urinary tract in pregnancy, unspecified trimester; Z3A.30 30 weeks gestation of pregnancy | CPT/HCPCS: 59025 ==

== ENCOUNTER → 2018-07-22 | Outpatient (REF) | payer OTHER | LOC: M LAB REF 17:29 | DX: Z34.83 Encounter for supervision of other normal pregnancy, third trimester (principal) ==

== ENCOUNTER → 2018-07-22 | Outpatient (REF) | payer OTHER ==
[2018-07-24 13:16] LABS: ESTIMATED AVERAGE GLUCOSE 94 MG/DL (60-110); HEMOGLOBIN A1c 4.9 %
== END ==
LOC: M LAB REF 17:09
DX: Z34.83 Encounter for supervision of other normal pregnancy, third trimester (principal)

== ENCOUNTER → 2018-07-26 | Outpatient (CLI) | payer OTHER ==
[2018-07-26 14:54] LABS: HEMATOCRIT 25.2 % (36.0-47.0); MEAN CORPUSCULAR HGB CONC 26.6 g/dl (32.0-36.5); MEAN CORPUSCULAR VOLUME 67.6 fl (80.0-96.0); PLATELET COUNT, AUTOMATED 214 10^3/uL (150-450); RED BLOOD COUNT 3.73 10^6/uL (4.00-5.40); RED CELL DISTRIBUTION WIDTH 19.2 % (11.5-14.5); WHITE BLOOD COUNT 7.6 10^3/uL (4.0-10.0)
[2018-07-26 14:58] LABS: HEMOGLOBIN 6.7 g/dl (12.0-15.5)
[2018-07-26 15:20] LABS: GLUCOSE CHALLENGE TEST 1 HOUR 90 MG/DL (LESS THAN 140)
== END ==
LOC: M LAB 12:47
DX: Z34.82 Encounter for supervision of other normal pregnancy, second trimester (principal)
CPT/HCPCS: 82950

== ENCOUNTER 2018-08-01 11:32 | Outpatient (CLI) | payer OTHER ==
[2018-08-01 17:13] LABS: IMMEDIATE SPIN CROSSMATCH 1 2
[2018-08-01 23:30] LABS: HEMATOCRIT 28.8 % (36.0-47.0); HEMOGLOBIN 8.1 g/dl (12.0-15.5); MEAN CORPUSCULAR HEMOGLOBIN 19.8 pg (27.0-33.0); MEAN CORPUSCULAR HGB CONC 28.1 g/dl (32.0-36.5); MEAN CORPUSCULAR VOLUME 70.4 fl (80.0-96.0); PLATELET COUNT, AUTOMATED 207 10^3/uL (150-450); RED BLOOD COUNT 4.09 10^6/uL (4.00-5.40); RED CELL DISTRIBUTION WIDTH 21.9 % (11.5-14.5); WHITE BLOOD COUNT 7.6 10^3/uL (4.0-10.0)
== END 2018-08-02 | disposition home or self-care (01) ==
LOC: M LDO 11:32
DX: O26.813 Pregnancy related exhaustion and fatigue, third trimester (principal); O99.013 Anemia complicating pregnancy, third trimester; D50.9 Iron deficiency anemia, unspecified; Z3A.37 37 weeks gestation of pregnancy
CPT/HCPCS: 36430

== ENCOUNTER → 2018-08-01 | Outpatient (REF) | payer OTHER ==
[2018-08-01 12:54] LABS: HEMATOCRIT 24.7 % (36.0-47.0); MEAN CORPUSCULAR HEMOGLOBIN 17.9 pg (27.0-33.0); MEAN CORPUSCULAR HGB CONC 26.7 g/dl (32.0-36.5); MEAN CORPUSCULAR VOLUME 66.9 fl (80.0-96.0); RED BLOOD COUNT 3.69 10^6/uL (4.00-5.40); RED CELL DISTRIBUTION WIDTH 19.5 % (11.5-14.5); WHITE BLOOD COUNT 8.9 10^3/uL (4.0-10.0)
[2018-08-01 13:00] LABS: HEMOGLOBIN 6.6 g/dl (12.0-15.5); POS COUNT POS FLAG
[2018-08-01 13:22] LABS: IRON (FE) 15 UG/DL (50-170); PERCENT SATURATION 2.5 % (13.2-45.0); TOTAL IRON BINDING CAPACITY 596 UG/DL (250-450)
== END ==
LOC: M LAB REF 12:02
DX: O99.019 Anemia complicating pregnancy, unspecified trimester (principal)
CPT/HCPCS: 83550

== ENCOUNTER 2018-08-05 06:53 | Inpatient (IN) | payer OTHER ==
[2018-08-05 07:27] LABS: BEDSIDE GLUCOSE 86 MG/DL (70-105)
[2018-08-05] MEDS ORDERED: ceFAZolin 1GM INJ (J0690 PER 500MG) IM (08:15)
[2018-08-05] MEDS: LACTATED RINGER'S 1000 ML IV (08:18)
[2018-08-05] MEDS: CLINDAMYCIN 600 MG in APPROPRIATE DILUENT 1 EA IV (08:37)
[2018-08-05 08:42] LABS: HEMOGLOBIN 8.7 g/dl (12.0-15.5); MEAN CORPUSCULAR HEMOGLOBIN 19.7 pg (27.0-33.0); MEAN CORPUSCULAR HGB CONC 28.1 g/dl (32.0-36.5); MEAN CORPUSCULAR VOLUME 70.3 fl (80.0-96.0); PLATELET COUNT, AUTOMATED 234 10^3/uL (150-450); RED BLOOD COUNT 4.41 10^6/uL (4.00-5.40); RED CELL DISTRIBUTION WIDTH 23.1 % (11.5-14.5); WHITE BLOOD COUNT 8.2 10^3/uL (4.0-10.0)
[2018-08-05] MEDS: PRENATAL VITAMINS CHEWABLE TABLET PO (09:00)
[2018-08-05] MEDS ORDERED: LR 1,000 ML IV (09:00)
[2018-08-05] MEDS: DOCUSATE SODIUM 100 MG CAP PO ×2 (09:00→19:50)
[2018-08-05] MEDS ORDERED: CLINDAMYCIN 600 MG/50 ML PREMIX BAG As Ordered (09:15)
[2018-08-05] MEDS: BICITRA 30ML SOLN UDC PO (09:23)
[2018-08-05] MEDS ORDERED: NALBUPHINE HCL 10 MG/ML AMP (J2300) IV (09:36)
[2018-08-05] MEDS ORDERED: NALOXONE INJ 0.4 MG/1 ML VIAL (J2310) IV ×2 (09:36)
[2018-08-05] MEDS ORDERED: ONDANSETRON 4MG/2ML VIAL (J2405) IV ×3 (09:36→11:00)
[2018-08-05] MEDS ORDERED: MOM 30ML SUSPENSION UDC PO (09:45)
[2018-08-05] MEDS ORDERED: MEASLES,MUMPS,RUBELLA VACCINE INJ (MMR-II) (90707) SC (09:45)
[2018-08-05] MEDS ORDERED: NORCO, ANEXSIA 5/325MG TABLET (HYDROcodone/ACETAMINOPHEN) PO (09:45)
[2018-08-05] MEDS ORDERED: RHOGAM 300 MCG (1500 IU) INJ (J2790) IM (09:45)
[2018-08-05] MEDS ORDERED: OXYTOCIN INJ 10 UNITS/ML VIAL (J2590) As Ordered (09:56)
[2018-08-05] MEDS ORDERED: BUPIVACAINE/DEXTROSE 0.75% 2 ML AMP As Ordered (09:56)
[2018-08-05] MEDS ORDERED: ePHEDrine SULFATE 25 MG/5 ML(5MG/ML) SYRINGE As Ordered (09:56)
[2018-08-05] MEDS ORDERED: PHENYLephrine HCL 500 MCG/5 ML (100MCG/ML) SYRINGE (J2370) As Ordered (09:56)
[2018-08-05] MEDS ORDERED: MORPHINE PRES-FREE INJ 10 MG/10 ML VIAL (J2274) As Ordered (09:56)
[2018-08-05 10:18] LABS: CORD GAS ABE A 1.4; CORD GAS HCO3 A 29.7 MEQ/L; CORD GAS O2 SAT A 17.3 %; CORD GAS PCO2 A 62.4 mmHg; CORD GAS PH A 7.295 UNITS; CORD GAS PO2 A 10.6 mmHg; CORD GAS SBC A 23.6 MEQ/L; CORD GAS TCO2 A 31.6 MEQ/L
[2018-08-05 10:21] LABS: CORD GAS ABE V -3.4; CORD GAS HCO3 V 22.5 MEQ/L; CORD GAS PCO2 V 43.5 mmHg; CORD GAS PH V 7.331 UNITS; CORD GAS PO2 V 23.7 mmHg; CORD GAS SBC V 20.7 MEQ/L; CORD GAS TCO2 V 23.8 MEQ/L
[2018-08-05] MEDS ORDERED: KETOROLAC 30 MG/ML VIAL (J1885) IV (11:00)
[2018-08-05] MEDS ORDERED: fentaNYL 100 MCG/2 ML INJECTION (J3010) IV (11:00)
[2018-08-05] MEDS ORDERED: MEPERIDINE INJ 25 MG/ML VIAL (J2175) IV (11:00)
[2018-08-05] MEDS ORDERED: OXYTOCIN 30 UNITS IN 0.9% NaCl 500ML IV BAG (J2590) As Ordered (11:18)
[2018-08-05] MEDS: OXYTOCIN DRIP 30 UNITS in APPROPRIATE DILUENT 1 EA IV (11:19)
[2018-08-05] MEDS: METOCLOPRAMIDE INJ 10MG/2ML VIAL (J2765) IV (17:59)
[2018-08-06 07:27] LABS: HEMATOCRIT 27.4 % (36.0-47.0); HEMOGLOBIN 7.5 g/dl (12.0-15.5); MEAN CORPUSCULAR HEMOGLOBIN 19.7 pg (27.0-33.0); MEAN CORPUSCULAR HGB CONC 27.4 g/dl (32.0-36.5); MEAN CORPUSCULAR VOLUME 71.9 fl (80.0-96.0); PLATELET COUNT, AUTOMATED 182 10^3/uL (150-450); RED BLOOD COUNT 3.81 10^6/uL (4.00-5.40); RED CELL DISTRIBUTION WIDTH 23.5 % (11.5-14.5); WHITE BLOOD COUNT 9.3 10^3/uL (4.0-10.0)
[2018-08-06] MEDS: PRENATAL VITAMINS CHEWABLE TABLET PO (08:25)
[2018-08-06] MEDS: DOCUSATE SODIUM 100 MG CAP PO ×2 (08:25→20:27)
[2018-08-06] MEDS: IBUPROFEN 800 MG TAB PO ×2 (13:31→20:07)
[2018-08-07] MEDS: IBUPROFEN 800 MG TAB PO (04:46)
[2018-08-07] MEDS: DOCUSATE SODIUM 100 MG CAP PO (07:51)
[2018-08-07] MEDS: PRENATAL VITAMINS CHEWABLE TABLET PO (07:51)
== END 2018-08-07 10:00 | disposition home or self-care (01) | DRG 540 ==
LOC: M LDI 06:53 → M OBS 12:18
PROVIDERS: Obstetrics & Gynecology
PROC: 10D00Z1 Extraction of Products of Conception, Low, Open Approach (ICD-10-PCS; principal; 2018-08-05 09:26)
PROC: 0UL70DZ Occlusion of Bilateral Fallopian Tubes with Intraluminal Device, Open Approach (ICD-10-PCS; 2018-08-05 09:26)
DX: O34.211 Maternal care for low transverse scar from previous cesarean delivery (principal); D64.9 Anemia, unspecified; Z37.0 Single live birth; Z3A.38 38 weeks gestation of pregnancy; Z30.2 Encounter for sterilization; O99.02 Anemia complicating childbirth; Z88.0 Allergy status to penicillin; Z91.018 Allergy to other foods

== ENCOUNTER 2018-09-08 02:15 | Emergency (ER) | payer OTHER ==
[~2018-09-08] VITALS: Ht 160 cm; Wt 45.5 kg
[2018-09-08 02:15] VITALS: BP 127/79
[~2018-09-08 02:15] MED LIST changes: +CIPR-249 PO; +FEOS200T2 PO; +FERR325T3 PO; +FLAG500T PO; +IBUP-1022 PO; +IBUP80TA PO; +PERC5TAB12 PO; +PREN29CH2 PO; +PRENTAB9 PO; +ZOFR4TAB14 PO; +[UNRECOGNIZED DRUG - REMARK]
== END 2018-09-08 02:54 | disposition home or self-care (01) ==
LOC: M ED 02:15
DX: O90.0 Disruption of cesarean delivery wound (principal); Z88.0 Allergy status to penicillin; Z91.018 Allergy to other foods

== ENCOUNTER 2019-11-25 22:05 | Emergency (ER) | payer OTHER, SELFPAY ==
[~2019-11-25] VITALS: Ht 160 cm; Wt 54.5 kg
[2019-11-25] MEDS ORDERED: IBUP200C33 PO (23:14)
[2019-11-25] MEDS ORDERED: IBUPROFEN 400 MG TAB PO ONE (23:15)
[2019-11-25 23:30] VITALS: BP 119/71
--- NOTE | 2019-11-26 03:07 | REP ---
Clinical: Trauma. Crush injury. Technique: AP, lateral, bilateral oblique views right hand . Findings: The osseous structures and joint spaces are intact and normal. There is no evidence for acute fracture or dislocation. Surrounding soft tissues are unremarkable. No subcutaneous emphysema or radiodense foreign body. Impression: No acute fracture or dislocation. Electronically Signed by Murtaza Romo MD 11/26/2019 02:58 A
== END 2019-11-25 23:31 | disposition home or self-care (01) ==
LOC: M ED 22:05
DX: S69.91XA Unspecified injury of right wrist, hand and finger(s), initial encounter (principal); W23.0XXA Caught, crushed, jammed, or pinched between moving objects, initial encounter; Y92.099 Unspecified place in other non-institutional residence as the place of occurrence of the external cause; Y93.9 Activity, unspecified; Y99.9 Unspecified external cause status; Z88.0 Allergy status to penicillin; Z91.018 Allergy to other foods

== ENCOUNTER 2019-12-16 23:53 | Emergency (ER) | payer MEDICAID, OTHER, SELFPAY ==
[~2019-12-16] VITALS: Ht 154.9 cm; Wt 54.5 kg
[~2019-12-16 23:53] MED LIST changes: +IBUP200C33 PO
[2019-12-17] MEDS ORDERED: GNP45TAB2 PO (00:11)
[2019-12-17] MEDS ORDERED: ALBU83IN INH (00:11)
[2019-12-17 01:05] LABS: BASO % 0.5 % (0.0-1.0); EOS # 0.3 10^3/uL (0.0-0.5); EOS % 3.3 % (0.0-3.0); HEMATOCRIT 36.5 % (36.0-47.0); HEMOGLOBIN 11.6 g/dl (12.0-15.5); LYMPH # 2.4 10^3/uL (1.5-5.0); LYMPH % 28.1 % (24.0-44.0); MEAN CORPUSCULAR HEMOGLOBIN 26.5 pg (27.0-33.0); MEAN CORPUSCULAR HGB CONC 31.8 g/dl (32.0-36.5); MEAN CORPUSCULAR VOLUME 83.5 fl (80.0-96.0); MONO # 0.7 10^3/uL (0.0-0.8); MONO % 7.7 % (0.0-5.0); NEUTROPHILS # 5.2 10^3/uL (1.5-8.5); NEUTROPHILS % 60.3 % (36.0-66.0); PLATELET COUNT, AUTOMATED 293 10^3/uL (150-450); RED BLOOD COUNT 4.37 10^6/uL (4.00-5.40); WHITE BLOOD COUNT 8.7 10^3/uL (4.0-10.0)
--- NOTE | 2019-12-17 01:25 | ECGEPIP ---
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
[2019-12-17 01:33] LABS: CK-MB VALUE MASS 2.1 NG/ML (<3.6); CPK CREATINE PHOSPHOKINASE 119 U/L (26-192); MB/CK RELATIVE INDEX 1.76 (< OR =4); TROPONIN I < 0.02 NG/ML (< 0.10)
[2019-12-17 01:48] VITALS: BP 119/74
--- NOTE | 2019-12-17 07:56 | REP ---
Chest x-ray: Two views. History: Shortness of breath after injury. . Comparison study: No comparison study . Findings: The lungs are well inflated and free of infiltrate. The pleural angles are sharp. The heart size is normal. Pulmonary vasculature is not increased. No significant bony abnormality is seen. Monitoring electrodes are seen overlying the chest. Impression: Negative chest x-ray. Electronically Signed by Wing Montalvo MD 12/17/2019 07:48 A
== END 2019-12-17 01:45 | disposition home or self-care (01) ==
LOC: M ED 23:53 → EDBD 23:53 → M ED 12-17 01:45
DX: S20.219A Contusion of unspecified front wall of thorax, initial encounter (principal); X58.XXXA Exposure to other specified factors, initial encounter; Y92.9 Unspecified place or not applicable; Y93.9 Activity, unspecified; Y99.9 Unspecified external cause status; R05 Cough; R00.0 Tachycardia, unspecified; J45.909 Unspecified asthma, uncomplicated; D64.9 Anemia, unspecified; Z88.0 Allergy status to penicillin; Z91.018 Allergy to other foods

== ENCOUNTER 2022-04-30 09:40 | Emergency (ER) | payer MEDICAID ==
[~2022-04-30] VITALS: Ht 160 cm; Wt 70.5 kg
[~2022-04-30 09:40] MED LIST changes: +ALBU2.5V10 INH; +GNP45TAB2 PO
[2022-04-30 09:49] VITALS: BP 108/72
== END 2022-04-30 15:52 | disposition home or self-care (01) ==
LOC: M ED 09:40
DX: S93.401A Sprain of unspecified ligament of right ankle, initial encounter (principal); X50.1XXA Overexertion from prolonged static or awkward postures, initial encounter; Y92.099 Unspecified place in other non-institutional residence as the place of occurrence of the external cause; Z91.018 Allergy to other foods; Z88.0 Allergy status to penicillin